=== PATIENT | female | born 1925 | race Caucasian/White ===

== ENCOUNTER 2016-11-29 06:30 | Emergency (ER) | payer OTHER, MEDICARE ==
[~2016-11-29] VITALS: Ht 160 cm; Wt 64.0 kg
[~2016-11-29 06:30] MED LIST: Ascorbic Acid,Ester- PO; COUMADIN,JANTOVE2 MG PO; CRESTOR40 MG PO; Dulcolax PO; EXFORGE 10/31 TABLET PO; Feosol PO; IMIPRAMINE HCL25 MG PO; LEXAPRO10 MG PO; Norvasc PO; OYST-CAL D, OS500 M1 PO; PROTONIX40 MG PO; SENOKOT S,PE1 TABLET PO; THERAGRAN1 TABLET PO; TOFRANIL25 MG PO; Tylenol Regular Stre PO; Vicodin,Norco 5/325 PO; WARFARIN SODIUM2 MG PO; ZANTAC150 MG PO
[2016-11-29 06:49] LABS: CREATININE 2.3 mg/dL (0.6-1.3)
[2016-11-29 06:56] LABS: EOSINOPHIL (%) 0 % (0-5); HEMATOCRIT 33.1 % (36.0-46.0); IMMATURE GRANULOCYTE (%) 0.8 % (0.0-0.7); IMMATURE GRANULOCYTE COUNT 1.4 K/uL; MCH 27.1 PG (29.0-34.0); MCHC 32.6 G/DL (30.0-36.0); MEAN PLAT.VOLUME 10.3 uM^3 (9.5-12.4); MONOCYTE (%) 9.3 % (3-12); MONOCYTE COUNT 1.6 K/uL (0-0.8); NEUTROPHIL (%) 71.6 % (45-76); NEUTROPHIL COUNT 11.9 K/uL (1.8-6.4); PLATELET COUNT 489 K/uL (156-360); RBC DIS.WIDTH-CV 15.8 % (11.8-14.6); RBC DIS.WIDTH-SD 47.3 % (39-53); RED BLOOD COUNT 3.99 M/uL (3.80-5.20); WHITE BLOOD COUNT 16.7 K/uL (4.1-10.2)
[2016-11-29 07:07] LABS: AMYLASE 39 IU/L (1-118); CHLORIDE 104 mEq/L (99-109); POTASSIUM 3.1 mEq/L (3.7-5.4); PTT 35.8 (25-32); SODIUM 141 mEq/L (136-147)
[2016-11-29 07:09] LABS: GLUCOSE 130 mg/dL (70-99)
[2016-11-29 07:10] LABS: ANION GAP 19 MEQ/L (2-14)
[2016-11-29 07:12] LABS: SERUM ETHYL ALCOHOL < 10 mg/dL
[2016-11-29 07:13] LABS: GFR ESTIMATE (CALCULATED) 20 mL/min/
[2016-11-29 07:14] LABS: UREA NITROGEN (BUN) 39 mg/dL (9-23)
[2016-11-29 07:16] LABS: INTER. NORMALIZED RATIO 5.4; LIPASE 16 U/L (1.0-51.0); PROTHROMBIN TIME 58.5 (9.2-11.2)
[2016-11-29 07:17] LABS: TROP-I INTERPRETATION NEGATIVE; TROPONIN-I 0.04 ng/mL (0.0-0.30)
[2016-11-29 07:21] LABS: ADD MIUA? YES; BILIRUBIN NEGATIVE; BLOOD LARGE; COLOR YELLOW ((YELLOW)); GLUCOSE (STRIP) NEGATIVE; KETONES NEGATIVE; LEUKOCYTES NEGATIVE; NITRITE NEGATIVE; PROTEIN (STRIP) 100; UROBILINOGEN 0.2 MG/DL (0.2-1.0)
[2016-11-29 07:36] LABS: AMPHETAMINE NEGATIVE (500 ng/mL); BARBITURATES NEGATIVE (200 ng/mL); BENZODIAZEPINES NEGATIVE (150 ng/mL); COCAINE NEGATIVE (150 ng/mL); INTERNAL CONTROLS VALID? YES; METHADONE NEGATIVE (200 ng/mL); METHAMPHETAMINE NEGATIVE (500 ng/mL); OPIATES (MORPHINE) NEGATIVE (100 ng/mL); OXYCODONE NEGATIVE (100 ng/mL); PHENCYCLIDINE NEGATIVE (25 ng/mL); PROPOXYPHENE NEGATIVE (300 ng/mL); THC CANNABINOIDS NEGATIVE (50 ng/mL); TRICYCLIC ANTIDEPRESSANTS PRESUMPTIVE POSITIVE (300 ng/mL)
[2016-11-29 07:43] LABS: CASTS PRESENT /LPF; CRYSTALS NONE SEEN; EPITHELIAL CELLS 4+; PATHOLOGICAL CAST PRESENT; RED BLOOD CELLS 0-5 /HPF (0-5); SMALL ROUND CELL PRESENT; WHITE BLOOD CELLS 15-20 /HPF (0-5); YEAST-LIKE CELL PRESENT
[2016-11-29 07:56] LABS: CELLULAR CASTS 0-5 /LPF; COARSE GRANULAR CASTS 0-5 /LPF; MUCUS NONE SEEN
[2016-11-29 07:57] LABS: BACTERIA 2+; UCUL ADDED? YES
== END 2016-11-29 10:34 ==
LOC: TRA 06:30
PROVIDERS: Emergency Medicine
PROC: 0BH17EZ Insertion of Endotracheal Airway into Trachea, Via Natural or Artificial Opening (ICD-10-PCS; principal; 2016-11-29)
PROC: 5A0935Z Assistance with Respiratory Ventilation, Less than 24 Consecutive Hours (ICD-10-PCS; 2016-11-29)
DX: I62.01 Nontraumatic acute subdural hemorrhage (principal); Z79.01 Long term (current) use of anticoagulants; Z95.2 Presence of prosthetic heart valve; S01.81XA Laceration without foreign body of other part of head, initial encounter; S61.411A Laceration without foreign body of right hand, initial encounter; X58.XXXA Exposure to other specified factors, initial encounter
CPT/HCPCS: 70450; 71010; 71250; 72125; 74176; 80047; 80048; 81003; 82150; 83690; 84484; 85025; 85610; 85730; 86850; 86900; 86901; 87086; 94002; 99281; 99285; G0480; J3430; J7050